=== PATIENT | female | born 1990 | race Caucasian/White ===

== ENCOUNTER 2022-02-15 13:37 | Emergency (ER) | payer OTHER ==
[~2022-02-15] VITALS: Ht 162.6 cm; Wt 83.9 kg
== END 2022-02-15 15:28 | disposition home or self-care (01) ==
LOC: ER 13:46
DX: R07.89 Other chest pain (principal); G40.909 Epilepsy, unspecified, not intractable, without status epilepticus; R94.31 Abnormal electrocardiogram [ECG] [EKG]
CPT/HCPCS: 71045; 93005; 99283

== ENCOUNTER 2023-12-09 14:34 | Emergency (ER) | payer OTHER ==
[~2023-12-09] VITALS: Ht 162.6 cm; Wt 88.5 kg
[~2023-12-09 14:34] MED LIST: ANUSOL-HC25 MG RC; LACTULOSE20 GM/30 M PO
[2023-12-09 14:40] VITALS: PULSE 80; RESP 15; TEMP 97.5
[2023-12-09 14:53] LABS: BASOPHILS # (AUTO) 0.1 (0.0-0.1); BASOPHILS % 0.8 % (0.0-1.0); EOSINOPHILS # (AUTO) 0.2 (0.0-0.4); EOSINOPHILS % 2.1 % (0.0-6.0); HEMATOCRIT 40.9 % (34.2-44.1); HEMOGLOBIN 13.2 g/dL (12.0-16.0); LYMPHOCYTES % 25.5 % (18.0-39.1); MEAN CORPUSCULAR HEMOGLOBIN 29.9 pg (28-32); MEAN CORPUSCULAR HGB CONC 32.3 g/dL (31-35); MEAN CORPUSCULAR VOLUME 92.7 fL (81-99); MONOCYTES # (AUTO) 0.5 (0.2-0.8); MONOCYTES % 6.1 % (4.4-11.3); NEUTROPHILS # (AUTO) 5.2 (2.1-6.9); NEUTROPHILS % 65.1 % (38.7-80.0); PLATELET COUNT 356 x10e3/uL (140-360); RED BLOOD COUNT 4.41 x10e6/uL (3.6-5.1); RED CELL DISTRIBUTION WIDTH 12.8 % (11.7-14.4); WHITE BLOOD COUNT 7.93 x10e3/uL (4.8-10.8)
[2023-12-09] MEDS: SODIUM CHLORIDE 0.9% 1000ML 1,000 ML IV STA (15:00)
[2023-12-09] MEDS: ONDANSETRON HCL INJ 2MG/ML 2ML 2 MG/ML VIAL IV STA ×2 (15:00→18:22)
[2023-12-09] MEDS: Morphine 4mg INJECTION 4 MG/ML INJ IV STA (15:02)
[2023-12-09] MEDS ORDERED: ONDANSETRON HCL INJ 2MG/ML 2ML 2 MG/ML VIAL ONE (15:13)
[2023-12-09 15:14] LABS: ALBUMIN 3.8 g/dL (3.5-5.0); BILIRUBIN,TOTAL 0.5 mg/dL (0.2-1.2); CALCIUM 9.2 mg/dL (8.4-10.2); CREATININE, SERUM 0.83 mg/dL (0.57-1.11); TOTAL PROTEIN 7.8 g/dL (6.5-8.1)
[2023-12-09 16:02] LABS: BILIRUBIN,URINE NEGATIVE (NEGATIVE); CLARITY,URINE SL CLOUDY (CLEAR); COLOR,URINE YELLOW (YELLOW); GLUCOSE, URINE NEGATIVE (NEGATIVE); KETONES,URINE NEGATIVE (NEGATIVE); LEUKOCYTE ESTERASE ,URINE SMALL (NEGATIVE); NITRITE,URINE NEGATIVE (NEGATIVE); PH,URINE 6.5 (5 - 7); PREGNANCY TEST, URINE NEGATIVE (NEGATIVE); URINE UROBILINOGEN 0.2 mg/dL (0.2 - 1)
[2023-12-09] MEDS ORDERED: IOPAMIDOL 370 MG/ML 100 ML INFUS..BTL INJ ONE (16:12)
[2023-12-09 16:14] LABS: BACTERIA,URINE FEW /HPF; EPITHELIAL CELLS,URINE MODERATE /LPF; PROTEIN,URINE DIPSTICK NEGATIVE (NEGATIVE)
[2023-12-09] MEDS ORDERED: ULTRAM 50MG50 MG PO (17:58)
[2023-12-09] MEDS ORDERED: ONDANSETRON ODT4 MG PO (18:00)
[2023-12-09] MEDS: FAMOTIDINE 20 MG/2 ML VIAL IV STA (18:22)
[2023-12-09 18:23] VITALS: BP 119/72; PULSE 74; RESP 18; TEMP 98.6; O2SAT 100
== END 2023-12-09 18:25 | disposition home or self-care (01) ==
LOC: ER 14:43
DX: R10.32 Left lower quadrant pain (principal); R11.2 Nausea with vomiting, unspecified; G40.909 Epilepsy, unspecified, not intractable, without status epilepticus; K42.9 Umbilical hernia without obstruction or gangrene; F17.210 Nicotine dependence, cigarettes, uncomplicated
CPT/HCPCS: 36415; 74177; 80053; 81001; 81025; 83690; 85025; 99284; J2270; J2405; J7030; Q9967